=== PATIENT | male | born 1970 | race Caucasian/White ===

== ENCOUNTER 2018-03-18 15:23 | Emergency (ER) | payer MEDICARE, MEDICAID ==
[~2018-03-18] VITALS: Ht 172.7 cm; Wt 72.7 kg
[2018-03-18 15:45] VITALS: BP 131/88
[2018-03-18] MEDS ORDERED: AMOX500C2 PO (15:54)
[2018-03-18] MEDS ORDERED: amoxicillin 250mg capsule PO ONE (15:55)
== END 2018-03-18 16:31 | disposition home or self-care (01) ==
LOC: ER 15:24
DX: K08.89 Other specified disorders of teeth and supporting structures (principal); Z79.2 Long term (current) use of antibiotics
CPT/HCPCS: 99283